=== PATIENT | male | born 1960 | race Caucasian/White ===

== ENCOUNTER 2023-03-20 04:25 | Inpatient (IN) | payer OTHER, SELFPAY ==
[2023-03-20] VITALS (28 sets, daily range): BP systolic 92–126; BP diastolic 63–91; PULSE 54–80; RESP 12–22; TEMP 35.9–36.6; O2SAT 95–100; BMI 28.6; BMI 28.3
--- NOTE | 2023-03-20 04:32 | EKG12_ITS ---
Test Reason : CP Blood Pressure : / mmHG Vent. Rate : 058 BPM Atrial Rate : 058 BPM P-R Int : 202 ms QRS Dur : 096 ms QT Int : 412 ms P-R-T Axes : 068 052 090 degrees QTc Int : [address] elevation consider inferior injury or acute infarct ACUTE WA / STEMI Consider right ventricular involvement in acute inferior infarct Abnormal ECG Confirmed by DEJAH ODONNELL, POLO ([id number]), greeting card editor ANIYAH JEAN ([id number]) on 03/20/2023 9:25:16 AM Referred By: Arian Jonas Confirmed By:POLO POND MD
--- NOTE | 2023-03-20 04:33 | RAD_ITS ---
EXAM: XR CHEST, 1 VIEW CLINICAL INDICATION: chest pain TECHNIQUE: Frontal view of the chest. COMPARISON: No relevant prior studies available. FINDINGS: LUNGS AND PLEURAL SPACES: Left apical opacity measuring 2.5 cm versus prominent first costochondral cartilage calcification. No pneumothorax. No effusion. HEART: Unremarkable. Cardiac silhouette not enlarged. MEDIASTINUM: Central airways and mediastinal contour are unremarkable. BONES/JOINTS: Unremarkable. SOFT TISSUES: Unremarkable. RAD/Chest 1 View (Portable) IMPRESSION: Left apical opacity measuring 2.5 cm versus prominent first costochondral cartilage calcification. Recommend lordotic view of the chest for further evaluation. Electronically Signed: Pipe Winters MD at 5:03 EDT ,
--- NOTE | 2023-03-20 04:34 | ED.VIS.CHEST ---
HPI History of Present Illness Chief Complaint: Chest Pain Informant: patient and EMS Onset/Context/Timing Associated Symptoms: Positive for Nausea, Diaphoresis and Lightheadedness; Negative for Vomiting or Dyspnea Narrative Narrative: Patient woke up about 3 AM, 1.5 hours prior to arrival, feeling poorly, diaphoretic, and feeling lightheaded like he might pass out. He was very nauseated but did not vomit. He denies any abdominal or chest discomfort including heaviness/pressure, denies any dyspnea, he his states that he look like he was briefly out. The patient did not have any sharp tearing sensations in his chest, arm or jaw discomfort, he has never felt like this before. He is heavy smoker, he takes medication for blood pressure but no other medications. He denies using drugs or cocaine. PFSH [facility] Medical History HTN (hypertension) Tobacco use Home Medications lisinopril 20 mg-hydrochlorothiazide 12.5 mg tablet 2 tab PO DAILY 03/20/23 [History Last Taken Unknown] Allergy/AdvReac Type Severity Reaction Status Date / Time tramadol AdvReac Chest Verified 03/20/23 04:29 tightness Family History (Updated 03/20/23 @ 04:[address] Caridad Freeman MD) Mother No problems noted. Father No problems noted. Surgical History (Updated 03/20/23 @ 04:[address] Caridad Freeman MD) H/O neck surgery Social History (Updated 03/20/23 @ 04:[address] Caridad Freeman MD) household members: spouse Smoking Status: Current every day smoker tobacco type: cigarettes Smoking packs per day: 0.5 Smoking cigarettes per day: 10.0 alcohol intake: never substance use type: does not use ROS ROS ED Constitutional Constitutional ED: Reports malaise and sweats; Denies chills or fever(s) Eyes Eyes: Denies change in vision or diplopia ENT ENT ED: Denies rhinorrhea or sore throat Cardiovascular Cardiovascular: Reports chest pain, fatigue and lightheadedness; Denies flutter in chest, leg edema, palpitations or radiating jaw, neck or arm pain Respiratory/Chest Respiratory/Chest: Denies cough or dyspnea Gastrointestinal Gastrointestinal: Reports nausea; Denies abdominal pain, diarrhea or vomiting Genitourinary Genitourinary ED: Denies dysuria or hematuria Musculoskeletal Musculoskeletal: Denies back pain or neck pain Integumentary Denies abscess or rash Neurologic Neurologic: Denies headache(s), paresthesias or weakness Psychiatric Psychiatric: Denies anxiety or suicidal thoughts EXAM Physical Exam Const Vital Signs: 03/20/23 04:26 03/20/23 04:32 03/20/23 04:32 Temperature 96.7 F L 96.6 F L Temperature Source Temporal Temporal Pulse Rate 59 L 80 Respiratory Rate 12 20 H Blood Pressure 122/73 H 120/71 Blood Pressure Mean 89 87 Pulse Ox 100 100 100 Oxygen Delivery Method Nasal Cannula Nasal Cannula Nasal Cannula Oxygen Flow Rate (L/min) 2 2 2 03/20/23 04:44 Temperature Temperature Source Pulse Rate Respiratory Rate Blood Pressure 124/90 H Blood Pressure Mean Pulse Ox Oxygen Delivery Method Oxygen Flow Rate (L/min) Positive well nourished and well developed General Appearance ED: well developed and NAD HEENT Reports moist mucous membranes normocephalic and atraumatic Eyes PERRL and EOMs intact bilaterally Neck full ROM and supple Resp normal respiratory effort and clear to auscultation bilaterally Cardio regular rate and regular rhythm Rate: other Other Details: Borderline bradycardia. Very faint heart sounds. GI non-tender and non-distended Auscultation: normoactive bowel sounds Palpation: soft Back/Spine no CVA tenderness General Back: other FROM Extremity normal to inspection General Extremety ED: Negative for edema, pulses abnormal or tenderness General Extremity: Negative for edema or pulses abnormal Neuro oriented x3, CN's II-XII intact bilaterally and no sensory deficits noted Sensorium / Orientation: awake and alert Motor Exam: strength 5/5 throughout Skin no rashes or lesions noted and no wounds Heart Score History: Moderately Suspicious ECG: Significant ST-Depression Age: >45 - <65 years Risk Factors: 1 or 2 Risk Factors Troponin: </= Normal Limit Score: 5 MDM MDM MDM Narrative Medical decision making narrative: Discussed with EMS. They wanted to call a STEMI alert because they were very concerned about his clinical appearance, and they took a picture of their twelve-lead which was segregated on their monitor, containing artifact, and scented to our charge nurse. I did not call a STEMI based on this because quite frankly it did not meet criteria based on what I was able to see, but once we receive the patient and got an EKG, we did alert cardiology and call a STEMI. Dr. Jonas agrees, and the team will come to take him to the Extr[facility] Press Operator. He was given heparin bolus, Brilinta 180, aspirin 324, IV fluids, oxygen, and Zofran. The patient appears very well and his vital signs are normal except for borderline bradycardia. History & Record Review Additional record(s) reviewed:: No prior records Lab Data Attestation: I reviewed the patient's lab results. Labs: Laboratory Results - last 24 hr 03/20/23 04:40 WBC 13.9 H RBC 4.80 Hgb 14.2 Hct 44.2 MCV 92.1 MCH 29.6 MCHC 32.1 RDW Std Deviation 45.0 H RDW Coeff of Trish 13.2 Plt Count 312 MPV 9.7 Immature Gran % (Auto) 0.400 Neut % (Auto) 64.4 Lymph % (Auto) 23.1 [place] % (Auto) 9.9 Eos % (Auto) 1.8 Baso % (Auto) 0.4 Absolute Neuts (auto) 9.0 H Absolute Lymphs (auto) 3.21 Nucleated RBC % 0 PT 13.2 INR 1.0 APTT 31.5 Sodium 139 Potassium 4.0 Chloride 105 Carbon Dioxide 27.0 Anion Gap 7 BUN 22 H Creatinine 1.07 Estim Creat Clear Calc 70.14 Est GFR (MDRD) Af Amer 90 Est GFR (MDRD) Non-Af 75 BUN/Creatinine Ratio 20.6 H Glucose 171 H Calcium 8.9 Troponin I High Sens 23 Radiography Chest X-Ray - ED: 1 View, Read by ED Physician, Normal, Mediastinum, No Acute Disease and - (Nodule versus mass versus rounded pneumonia left upper lobe) Diagnostic Testing: Clinical Impression(s) from Imaging Studies Chest X-Ray 03/20/23 04:33 IMPRESSION: Left apical opacity measuring 2.5 cm versus prominent first costochondral cartilage calcification. Recommend lordotic view of the chest for further evaluation. Electronically Signed: Pipe Winters MD at 5:03 EDT , Rhythm Strip Rhythm Strip: Sinus Rhythm Rate: 58 Ectopy: None EKG Initial EKG: Attestation: I personally reviewed and interpreted this EKG as follows: Interpretation: Sinus Rhythm, S-T Elevation (inf) and S-T Depression (laterally) Prior: No Prior Management Discussion w/another healthcare provider: Hospitalist and Laundry Housekeeper (cardiology) Critical Care Time Critical Care Time: Yes Critical care time (excluding procedures): 30-74 minutes (36 min), Including time spent:, Discussing w/Patient &/or Family/Video Intern, Discussing w/Consultants, Arranging Admission or Transfer and Performing Direct Patient Care at Bedside Discharge Plan Dx/Rx/DC Orders Clinical Impression: ST elevation myocardial infarction (STEMI) of inferior wall Disposition Disposition: Acute Care Hospital [facility]
[2023-03-20] MEDS: Aspirin 81 MG TAB.CHEW 324 MG PO (04:38)
--- NOTE | 2023-03-20 04:38 | PCM.HP.STD ---
HPI - General General Date of Admission: 03/20/23 Date of Service: 03/20/23 Chief Complaint: Diaphoresis, LH, nausea. HPI Narrative The patient is a 62 y/o M w/ PMHx: Hypertension, Tobacco use who presents to the [facility] ED on 03/20/23 with history of awakening at 3 am coated in sweat with lightheadedness, nausea without emesis with no associated chest pain or dyspnea but persisted prompting EMS call. notes she believes he may have passed out but patient denies although currently not the best historian. Currently patient denies any further lightheadedness or dizziness or near syncopal sensation and is not diaphoretic. In the emergency room patient however is extremely irritable and several times notes displeasure with IV access attempts. Upon ED arrival EKG obtained and STEMI inferior noted and STEMI alert called. Dr. Jonas contacted and agreed and requested administration heparin bolus, ASA FS and brillinta load be administered. Work-up in the ED included T 96.7, HR 59, BP 122/73, RR 12, 100% on 2L NC, pending CBC, BMP, coags, troponin, EKG upon requested evaluation of patient. [facility] Medical History HTN (hypertension) Tobacco use Home Medications lisinopril 20 mg-hydrochlorothiazide 12.5 mg tablet 2 tab PO DAILY 03/20/23 [History Last Taken Unknown] Allergy/AdvReac Type Severity Reaction Status Date / Time tramadol AdvReac Chest Verified 03/20/23 04:29 tightness Family History Mother No problems noted. Father No problems noted. other (Denies any marked maternal history including HD, DM, CA. Notes his father when he was younger but unclear reason why.) Surgical History (Updated 03/20/23 @ 04:[address] Caridad Freeman MD) H/O neck surgery Social History (Updated 03/20/23 @ 04:[address] Caridad Freeman MD) household members: spouse Smoking Status: Current every day smoker tobacco type: cigarettes Smoking packs per day: 0.5 Smoking cigarettes per day: 10.0 alcohol intake: never substance use type: does not use ROS ROS Narrative Admission Review of Systems: CONSTITUTIONAL: No weight loss, fever, chills, + weakness or fatigue. HEENT: Eyes: No visual loss, blurred vision, double vision or yellow sclerae. Ears, Nose, Throat: No hearing loss, sneezing, congestion, runny nose or sore throat. SKIN: No rash or itching, lesions, wounds. CARDIOVASCULAR: + LH, possible syncope versus near syncope, No chest pain, chest pressure or chest discomfort, palpitations, edema, orthopnea. RESPIRATORY: No shortness of breath, cough or sputum, wheezing, hemoptysis. GASTROINTESTINAL: + anorexia, nausea. No vomiting or diarrhea, abdominal pain, melena, BRBPR. GENITOURINARY: No dysuria, frequency, urgency or retention. NEUROLOGICAL: + LH, near syncope versus syncope. No headache, dizziness, syncope, paralysis, ataxia, numbness or tingling in the extremities, focal weakness, change in bowel or bladder control, seizure. MUSCULOSKELETAL: + muscle, back pain, joint pain or stiffness. HEMATOLOGIC: No anemia, bleeding or bruising. LYMPHATICS: No enlarged nodes. No history of splenectomy. PSYCHIATRIC: No history of depression or anxiety. ENDOCRINOLOGIC: No reports of sweating, cold or heat intolerance. No polyuria or polydipsia. ALLERGIES: No history of asthma, hives, eczema or rhinitis. Vital Signs Vital Signs Vital Signs: 03/20/23 04:26 Temperature 96.7 F L Temperature Source Temporal Pulse Rate 59 L Respiratory Rate 12 Blood Pressure 122/73 H Blood Pressure Mean 89 Pulse Ox 100 Oxygen Delivery Method Nasal Cannula Oxygen Flow Rate (L/min) 2 Weight Weight: 188 lb 7.924 oz Body Mass Index (BMI) 28.6 Physical Exam Narrative Physical Examination: General: Awake, alert, oriented x 3 and cooperative, seated upright in the ED bed in no apparent distress, irritable. Skin: Normal color, normal turgor, no icterus, no cyanosis. HEENT: AT/NC, EOMI, PERRLA, MMM, no carotid bruits or JVD noted. Lungs: Diminished, > bases, moderate effort, no rales, ronchi or wheezing. Heart: Bradycardic with regular rhythm; no gallop, rub audible. Abdomen: Soft, NTTP, ND, distant normal BS, no HSM. Extremities: No cyanosis, clubbing, or edema. Neurological: Patient awake, alert, oriented as noted, cognitive function intact; pupils equally reactive to light and accommodation, cranial nerves II-XII grossly normal, moving all 4 extremities, no focal deficits, strength moderately globally decreased secondary to acute presentation. Psychiatric: Affect appears irritable, no acute evidence of depressive or anxiety feelings. Assessment & Plan Assessment/Plan (1) ST elevation myocardial infarction (STEMI) of inferior wall: PLAN: Plan The patient is a 62 y/o M w/ PMHx: Hypertension, Tobacco use who presents to the [facility] ED on 03/20/23 with history of awakening at 3 am coated in sweat with lightheadedness, nausea without emesis with no associated chest pain or dyspnea but persisted prompting EMS call. notes she believes he may have passed out but patient denies although currently not the best historian. #1. Diaphoresis, nausea, lightheadedness with possible syncopal versus near syncopal event w/ Acute Inferior STEMI: EKG in ED w/ evidence inferior STEMI,pending CBC, BMP, troponin, CXR upon evaluation. Will transition to the catheterization lab once prepared and Dr. Jonas aware and en route. Following intervention, will plan to admit to the ICU, maintain on a monitored bed, continue serial cardiac enzymes and EKGs. Obtain magnesium level upon admission. Continue medical management w/ asa, add high dose statin w/ AM FLP. Given bradycardia currently noted will defer BB immediate addition. ECHO requested. ASA, morphine. #2. Hypertension: Patient outpatient is on Lisinopril-HCTZ 40-25 daily. Will hold temporarily given presentation with BP normal range, continue judicious IV fluids, avoiding automatic addition of beta-emily with #1 pending further heart rate and BP trending and will defer to cardiology discretion ultimately. #3. Tobacco Abuse: Encouraged cessation, inpatient consultation per RT, NR if desired. #4. DVT prophylaxis: We will initiate Lovenox in AM. #5. CODE status: Patient CAYDEN is his who is and living will is currently in. Discussed CODE status at length including difference between FULL code, DNR-CCA and DNR-CC status. Following discussions about the differences in these status, requested Full Code status. Charges/Coding Visit Charges Inpatient E&M: 15621 Init Hosp L3
[2023-03-20] MEDS: Ondansetron 4 MG/2 ML Vial IV (04:39)
[2023-03-20] MEDS: Heparin Injection (Vial) 5,000 UNIT/ML VIAL 4000 UNIT IV (04:40)
[2023-03-20] MEDS: TICAGRELOR 90 MG TABLET 180 MG PO (04:40)
[2023-03-20] MEDS: 0.9% Normal Saline 1,000 ML 999 ML IV (04:40)
[2023-03-20 04:51] LABS: Absolute Lymphocyte Count 3.21 X10^3/uL (0.83-4.51); Basophil# 0.05 X10^3/uL; Basophil% 0.4 % (0-1); Eosinophil# 0.25 X10^3/uL; Eosinophils% 1.8 % (0-5); Hematocrit 44.2 % (40-54); Hemoglobin 14.2 g/dL (13.0-16.5); Lymphocyte # 3.21 X10^3/ul (0.83-4.51); Lymphocyte % 23.1 % (19-41); Mean Corp Hgb Conc 32.1 g/dL (32-36); Mean Corpuscular Hgb 29.6 pg (27.0-32.0); Mean Corpuscular Volume 92.1 fL (80-94); Mean Platelet Vol. 9.7 fl (6.2-12.0); Monocyte# 1.37 X10^3/uL; Monocyte% 9.9 % (0-10); NRBC Flagged by Analyzer 0 % (0-5); Neutrophil # 8.97 X10^3/uL (2.7-7.7); Neutrophil % 64.4 % (47-70); Platelet Count 312 K/mm3 (150-450); RBC Distribution Width CV 13.2 % (11.6-14.6); White Blood Count 13.9 K/mm3 (4.4-11.0)
[2023-03-20 05:00] LABS: Partial Thromboplast Time 31.5 Seconds (24.1-36.2); Prothrombin Time (Protime)PT. 13.2 SECONDS (11.7-14.9)
[2023-03-20 05:12] LABS: Anion Gap 7 (5-15); BUN 22 mg/dL (7-18); BUN/Creat Ratio 20.6 RATIO (10-20); Calcium,Total 8.9 mg/dL (8.5-10.1); Chloride 105 mmol/L (98-107); Creatinine, Serum 1.07 mg/dL (0.70-1.30); EST Glomerular Filtration Rate 75 mL/min (>60); Est Glom Filt Rate - Afr Amer 90 mL/min (>60); Estimated Creatinine Clearance 70.14 ml/min; Glucose 171 mg/dL (74-106); Sodium Level 139 mmol/L (136-145); Troponin-I HS 23 pg/mL (3.0-78.0)
[2023-03-20 05:41] LABS: AST(SGOT) 21 U/L (15-37); Alanine Aminotransfer ALT/SGPT 23 U/L (16-61); Albumin, Serum 3.3 g/dL (3.2-5.0); Alkaline Phosphatase 120 U/L (45-117); Bilirubin, Direct 0.11 mg/dL (0.00-0.30); Globulin 4.5 g/dL (2.2-4.2); Magnesium 2.4 mg/dL (1.6-2.6); Protein, Total 7.8 g/dL (6.4-8.2)
--- NOTE | 2023-03-20 06:25 | ECHOCS_ITS ---
Reason For Study: STEMI Procedure This was a 2D Doppler, Color Flow transthoracic echocardiogram. The study was technically difficult. Contrast injection was performed. Exam performed portable in ICU/CCU. Left Ventricle Normal LV size. Left ventricular systolic function is normal. The estimated ejection fraction is 60 %. Mild segmental systolic dysfunction (see wall motion). Stage 1 diastolic dysfunction. Mid- Posterior: Hypokinetic. Mid-Inferior: Hypokinetic. Right Ventricle Normal RV size. Normal systolic function. Atria Normal left atrium. Normal right atrium. Mitral Valve Normal mitral valve. Tricuspid Valve Normal tricuspid valve. Aortic Valve The aortic valve is not well visualized. Pulmonic Valve Normal pulmonic valve. Great Vessels Normal aortic root. The pulmonary artery is normal size. Normal inferior vena cava. Pericardium/Pleural No pericardial effusion. Medication Diluted definity 1ml given slow IV push to enhance endocardial definition. MMode/2D Measurements & Calculations LVIDd: 4.6 cm IVSd: 0.95 cm LA dimension: 3.2 cm LVIDs: 3.2 cm LVPWd: 0.80 cm RVDd: 4.1 cm FS: 29.2 % LAV(MOD-sp4): 37.9 ml LVAd ap4: 25.0 cm2 SV(MOD-sp4): 40.2 ml LVLd ap4: 7.2 cm EDV(MOD-sp4): 70.9 ml EDV(sp4-el): 73.3 ml LVAs ap4: 14.9 cm2 LVLs ap4: 6.0 cm ESV(MOD-sp4): 30.7 ml ESV(sp4-el): 31.4 ml EF(MOD-sp4): 56.6 % EF(sp4-el): 57.2 % SV(sp4-el): 41.9 ml LA A4 area: 16.5 cm2 RA A4 area: 15.1 cm2 Time Measurements MV dec time: 0.21 sec Doppler Measurements & Calculations MV E max willis: 76.9 cm/sec Lat Peak E' Willis: 9.6 cm/sec Med Peak E' Willis: 8.2 cm/sec MV A max willis: 106.2 cm/sec E/E' lat: 8.0 E/E' med: 9.3 MV E/A: 0.72 MV V2 max: 111.2 cm/sec MV P1/2t max willis: 93.9 cm/sec Ao V2 max: 109.7 cm/sec MV max P.9 mmHg MV P1/2t: 82.2 msec Ao max P.8 mmHg MV V2 mean: 55.8 cm/sec Ao V2 mean: 73.5 cm/sec MV mean P.5 mmHg MV dec slope: 334.5 cm/sec2 Ao mean P.5 mmHg MV V2 VTI: 41.9 cm MVA(P1/2t): 2.7 cm2 Ao V2 VTI: 23.1 cm AV (velocity ratio): 0.84 LV V1 max: 97.0 cm/sec LV V1 max P.8 mmHg LV V1 mean P.1 mmHg LV V1 mean: 69.2 cm/sec LV V1 VTI: 19.5 cm ECHO/Echo Complete W/ Contrast Interpretation Summary Normal LV size. Left ventricular systolic function is normal. The estimated ejection fraction is 60 %. Stage 1 diastolic dysfunction. Contrast injection was performed. Ordering Physician: Caridad Freeman Referring Physician: Arian Jonas Performed By: Thompson Dominguez RCS
--- NOTE | 2023-03-20 06:35 | CON.PCM.CA_ITS ---
Assessment & Plan Assessment/Plan (1) ST elevation myocardial infarction (STEMI) of inferior wall: PLAN: Treated with thrombectomy and drug-eluting stent placement of the RCA. We will keep the patient on aspirin, Brilinta and statin. Patient's blood pressure is low and we will start him on a beta-emily when his blood pressure can t olerate. 2D echo to evaluate LV function. HPI Consult Data Date of Consult: 03/20/23 HPI Narrative Reason for Consultation: STEMI HPI Narrative: REESE WHITLEY, is a 62 M who woke up around 3 AM this morning with profuse sweating, lightheadedness. His mentioned that he had a syncopal episode as well. He was brought to the emergency room and was found to have ST elevation in the inferior leads on the EKG. Patient denied any chest pain. However because of the inferior ST elevation on the EKG patient was brought emergently to the [facility] and underwent coronary angiography which revealed 100% occlusion of the distal RCA that was treated with thrombectomy and drug-eluting stent placement. He also had an 80% lesion in the mid RCA that was treated with drug- eluting stent placement. He is being admitted to the CCU for further management of his ST elevation NH Review of systems: All systems reviewed. All else is negative except as in HPI PFSH Medical History HTN (hypertension) Tobacco use Home Medications lisinopril 20 mg-hydrochlorothiazide 12.5 mg tablet 2 tab PO DAILY 03/20/23 [History Last Taken Unknown] Allergy/AdvReac Type Severity Reaction Status Date / Time tramadol AdvReac Chest Verified 03/20/23 04:29 tightness Family History (Updated 03/20/23 @ 04:[address] Caridad Freeman MD) Mother No problems noted. Father No problems noted. Family History other Surgical History (Updated 03/20/23 @ 04:[address] Caridad Freeman MD) H/O neck surgery Social History (Updated 03/20/23 @ 04:[address] Caridad Freeman MD) household members: spouse Smoking Status: Current every day smoker tobacco type: cigarettes Smoking packs per day: 0.5 Smoking cigarettes per day: 10.0 alcohol intake: never substance use type: does not use Physical Exam Const alert and oriented x3 HEENT normocephalic Eyes no scleral icterus Resp normal respiratory effort Cardio regular rate Psych mental status grossly normal Risk Stratification Risk Stratification Applicable: No Charges/Coding Visit Charges Inpatient E&M: 27982 Init Hosp L2 Objective Data Vital Signs: Vital Signs Temp Pulse Resp BP Pulse Ox O2 Del Method O2 Flow Rate 96.6 F L 80 20 H 124/90 H 100 Nasal Cannula 2 03/20/23 04:32 03/20/23 04:32 03/20/23 04:03/20/23 04:44 03/20/23 04:03/20/23 04:03/20/23 04:32 Oxygen Flow Rate (L/min) 2 Oxygen Delivery Method Nasal Cannula Weight: 188 lb 7.924 oz Body Mass Index (BMI) 28.6 Lab / Micro Data 03/20/23 04:40 03/20/23 04:40 Labs: Laboratory Results - last 24 hr 03/20/23 04:40: WBC 13.9 H, RBC 4.80, Hgb 14.2, Hct 44.2, MCV 92.1, MCH 29.6, MCHC 32.1, RDW Std Deviation 45.0 H, RDW Coeff of Trish 13.2, Plt Count 312, MPV 9.7, Immature Gran % (Auto) 0.400, Neut % (Auto) 64.4, Lymph % (Auto) 23.1, [place] % (Auto) 9.9, Eos % (Auto) 1.8, Baso % (Auto) 0.4, Absolute Neuts (auto) 9.0 H, Absolute Lymphs (auto) 3.21, Nucleated RBC % 0, PT 13.2, INR 1.0, APTT 31.5, Sodium 139, Potassium 4.0, Chloride 105, Carbon Dioxide 27.0, Anion Gap 7, BUN 22 H, Creatinine 1.07, Estim Creat Clear Calc 70.14, Est GFR (MDRD) Af Amer 90, Est GFR (MDRD) Non-Af 75, BUN/Creatinine Ratio 20.6 H, Glucose 171 H, Calcium 8.9, Troponin I High Sens 03/20/23 04:55: Magnesium 2.4, Total Bilirubin 0.30, Direct Bilirubin 0.11, AST 21, ALT 23, Alkaline Phosphatase 120 H, Total Protein 7.8, Albumin 3.3, Globulin 4.5 H Rhythm Strip Rhythm Strip: Sinus Rhythm Rate: 58 Ectopy: None Cardiology Labs/Tests 03/20/23 04:40: WBC 13.9 H, RBC 4.80, Hgb 14.2, Hct 44.2, MCV 92.1, MCH 29.6, MCHC 32.1, Plt Count 312, MPV 9.7, Immature Gran % (Auto) 0.400, Neut % (Auto) 64.4, Lymph % (Auto) 23.1, [place] % (Auto) 9.9, Eos % (Auto) 1.8, Baso % (Auto) 0.4, Absolute Neuts (auto) 9.0 H, Nucleated RBC % 0, PT 13.2, INR 1.0, APTT 31.5, Sodium 139, Potassium 4.0, Chloride 105, Carbon Dioxide 27.0, Anion Gap 7, BUN 22 H, Creatinine 1.07, Est GFR (MDRD) Af Amer 90, Est GFR (MDRD) Non-Af 75, BUN/Creatinine Ratio 20.6 H, Glucose 171 H, Calcium 8.9 03/20/23 04:55: Magnesium 2.4, Total Bilirubin 0.30, Direct Bilirubin 0.11 Rhythm: EKG: ECHO: Stress Test: Cardiac Cath: PCI: CT Surgery: Holter monitor: EPS: PPM: CXR: Chest CT Scan: Radiography Diagnostic Testing: Radiology Impression Chest X-Ray 03/20/23 04:33 IMPRESSION: Left apical opacity measuring 2.5 cm versus prominent first costochondral cartilage calcification. Recommend lordotic view of the chest for further evaluation. Electronically Signed: Pipe Winters MD at 5:03 EDT ,
[2023-03-20] MEDS: 0.9% Normal Saline 1,000 ML 100 ML IV (06:50)
--- NOTE | 2023-03-20 07:00 | EKG12_ITS ---
Test Reason : PCI Blood Pressure : / mmHG Vent. Rate : 061 BPM Atrial Rate : 061 BPM P-R Int : 166 ms QRS Dur : 094 ms QT Int : 406 ms P-R-T Axes : 081 -29 039 degrees QTc Int : 408 ms Normal sinus rhythm Inferior infarct , age undetermined Abnormal ECG When compared with ECG of 20-MAR-2023 06:43, MANUAL COMPARISON REQUIRED, DATA IS UNCONFIRMED Confirmed by DEJAH ODONNELL, POLO ([id number]), features editor ANIYAH JEAN ([id number]) on 03/24/2023 2:11:05 PM Referred By: Arian Jonas Confirmed By:POLO POND MD
[2023-03-20 07:18] LABS: Troponin-I HS 12098 pg/mL (3.0-78.0)
--- NOTE | 2023-03-20 07:35 | PN.HOSP_ITS ---
Reason for Visit Reason for Visit: Diagnoses ST elevation (STEMI) myocardial infarction involving other coronary artery of i nferior wall (03/20/23) Objective Data Objective Data Follow-up for left colostomy Vital Signs: Vital Signs Temp Pulse Resp BP Pulse Ox O2 Del Method O2 Flow Rate 97.2 F L 71 12 99/71 98 Room Air 2 03/20/23 06:45 03/20/23 07:15 03/20/23 07:15 03/20/23 07:15 03/20/23 07:15 03/20/23 07:15 03/20/23 04:32 Oxygen Flow Rate (L/min) 2 Oxygen Delivery Method Room Air Weight: 186 lb 4.65 oz Body Mass Index (BMI) 28.3 Intake & Output: Intake and Output for Last 24 Hours 03/18/23 03/19/23 03/20/23 23:59 23:59 23:59 Intake Total 1000 / 1000 Balance 1000 / 1000 Lab / Micro Data 03/20/23 04:40 03/20/23 04:40 Labs: Laboratory Results - last 24 hr 03/20/23 04:40: WBC 13.9 H, RBC 4.80, Hgb 14.2, Hct 44.2, MCV 92.1, MCH 29.6, MCHC 32.1, RDW Std Deviation 45.0 H, RDW Coeff of Trish 13.2, Plt Count 312, MPV 9.7, Immature Gran % (Auto) 0.400, Neut % (Auto) 64.4, Lymph % (Auto) 23.1, [place] % (Auto) 9.9, Eos % (Auto) 1.8, Baso % (Auto) 0.4, Absolute Neuts (auto) 9.0 H, Absolute Lymphs (auto) 3.21, Nucleated RBC % 0, PT 13.2, INR 1.0, APTT 31.5, Sodium 139, Potassium 4.0, Chloride 105, Carbon Dioxide 27.0, Anion Gap 7, BUN 22 H, Creatinine 1.07, Estim Creat Clear Calc 70.14, Est GFR (MDRD) Af Amer 90, Est GFR (MDRD) Non-Af 75, BUN/Creatinine Ratio 20.6 H, Glucose 171 H, Calcium 8.9, Troponin I High Sens 03/20/23 04:55: Magnesium 2.4, Total Bilirubin 0.30, Direct Bilirubin 0.11, AST 21, ALT 23, Alkaline Phosphatase 120 H, Total Protein 7.8, Albumin 3.3, Globulin 4.5 H 03/20/23 06:40: Troponin I High Sens 52501 H* Radiography Diagnostic Testing: Radiology Impression Chest X-Ray 03/20/23 04:33 IMPRESSION: Left apical opacity measuring 2.5 cm versus prominent first costochondral cartilage calcification. Recommend lordotic view of the chest for further evaluation. Electronically Signed: Pipe Winters MD at 5:03 EDT , Rhythm Strip Rhythm Strip: Sinus Rhythm Rate: 58 Ectopy: None Physical Exam Narrative Seen and examined. Patient does not have symptoms of chest pain pressure or tightness. No shortness of breath. Dizziness lightheadedness and diaphoresis has resolved. Normal sinus rhythm on fur buyer. Physical exam General: Alert, Oriented x3, Cooperative HEENT: Atraumatic, PERRLA, EOMI, Normocephalic Oral: Oral mucosa moist. No Gingival or Mucosal Lesions/ Ulcerations Neck: Supple, No JVD, Negative Carotid Bruits Lungs: Air entry diminished in bilateral lung bases. No crepitation/rhonchi Cardiovascular: Regular rate, Regular Rhythm, Normal S1, Normal S2, No murmurs Abdomen: Bowel Sounds Present, Soft, Non Tender, Non-Distended : No renal angle tenderness. No suprapubic tenderness. Extremities: No edema, Capillary Refill Less than 3 Seconds Skin: No rashes, No breakdown Musculoskeletal: No Tenderness to Palpation of Joints or Extremities Neurological: Cranial nerves II-XII grossly intact, DTR 2+/4 and Symmetrical, Neuro grossly intact Psych/Mental Status: Normal Affect, Appropriate. Assessment & Plan Assessment/Plan (1) ST elevation myocardial infarction (STEMI) of inferior wall: PLAN: Plan The patient is a 62 y/o M was admitted in ICU through ED on 03/20/23 with history of awakening at 3 am coated in sweat with lightheadedness, nausea without emesis with no associated chest pain or dyspnea but persisted prompting EMS call. notes she believes he may have passed out but patient denies although currently not the best historian. #1. Diaphoresis, nausea, lightheadedness with possible syncopal versus near syncopal event w/ Acute Inferior STEMI: EKG in ED reviewed and shows evidence of inferior wall STEMI. Serum magnesium normal. 03/20: Patient was found to have 100% occlusion of distal RCA was treated with thrombectomy and drug-eluting stent. Patient on aspirin, Brilinta and statin. Currently BP is low we will start beta-emily once BP and heart rate can to lerate. 2D echo ordered. Troponin very high. Liver chemistry normal. Fasting lipid profile pending. #2. Hypertension: BP on the lower side 78/65. Hold lisinopril HCTZ 40-25 mg daily. #3. Tobacco Abuse: Encouraged cessation #4. DVT prophylaxis: initiate Lovenox in AM. #5. CODE status: Patient CAYDEN is his who is and living will is currently in. Discussed CODE status at length including difference between FULL code, DNR- CCA and DNR-CC status. Following discussions about the differences in these status, requested Full Code status. Laboratory Results 03/20/23 04:40: WBC 13.9 H, RBC 4.80, Hgb 14.2, Hct 44.2, MCV 92.1, MCH 29.6, MCHC 32.1, RDW Std Deviation 45.0 H, RDW Coeff of Trish 13.2, Plt Count 312, MPV 9.7, Immature Gran % (Auto) 0.400, Neut % (Auto) 64.4, Lymph % (Auto) 23.1, [place] % (Auto) 9.9, Eos % (Auto) 1.8, Baso % (Auto) 0.4, Absolute Neuts (auto) 9.0 H, Absolute Lymphs (auto) 3.21, Nucleated RBC % 0, PT 13.2, INR 1.0, APTT 31.5, Sodium 139, Potassium 4.0, Chloride 105, Carbon Dioxide 27.0, Anion Gap 7, BUN 22 H, Creatinine 1.07, Estim Creat Clear Calc 70.14, Est GFR (MDRD) Af Amer 90, Est GFR (MDRD) Non-Af 75, BUN/Creatinine Ratio 20.6 H, Glucose 171 H, Calcium 8.9, Troponin I High Sens 23 03/20/23 04:55: Magnesium 2.4, Total Bilirubin 0.30, Direct Bilirubin 0.11, AST 21, ALT 23, Alkaline Phosphatase 120 H, Total Protein 7.8, Albumin 3.3, Globulin 4.5 H 03/20/23 06:40: Troponin I High Sens 33837 H* Charges/Coding Visit Charges Inpatient E&M: 97763 Subs Hosp L3
[2023-03-20 09:31] LABS: Cholesterol 165 mg/dL (200); High Density Lipoprotein 35 mg/dL; Triglycerides 81 mg/dL; Very Low Density Lipoprotein 16 mg/dL (5-40)
--- NOTE | 2023-03-20 10:57 | CRPHASE1_ITS ---
Patient Communication Patient Information Former Patient:: Phase I PHII Cardiac Rehab Discussed with Patient:: Yes Guide to Cardiac Rehab Given to Patient:: Yes Cardiac Rehab Facility Choice List Given to Patient:: Yes Communication to Cardiac Rehab Choice Program [facility] CR PHII:: Communication Given to CR Tarper:: Arian Jonas Sessions:: 36 sessions - 3 days/wk, 12 weeks Cardiac Rehabilitation Info Program Information Cardiac Rehabilitation Program Information: Cardiac Rehab The cardiac rehab team at [facility] consists of highly skilled exercise physiologists, nurses, respiratory therapists and physicians working together with you. Our purpose is to help you have a full recovery and achieve the goals you set for yourself. Over the years many of our patients have returned to activities they assumed they would never do again! We can help restore your confidence and motivation to make lifestyle changes that can have a significant impact on your health and quality of life! We can help answer questions and concerns you may have about exercise, lifestyle, medications, diet, stress and anxiety which are common following a hospitalization. WE monitor ECG and vital signs during exercise and discuss your progress with you and report to your physician(s). Cardiac Rehab is proven to help reduce readmissions, improve functional capacity and lower recurrence of problems with your heart. Our Cardiac Rehab program is Certified by the [place] [employer] Pulmonary [employer] (AACVPR) and Accredited by the [place] [employer] through our [facility]. You can contact us at . We invite you to call us with your questions or to get started in our program. If you have other questions or concerns be sure to ask your physician/provider during your follow-up visit. WE look forward to seeing you!
--- NOTE | 2023-03-20 11:01 | CRPH1.INSTRU ---
General Education Discussed with Patient CAD and cardiac anatomy and function:: Patient communicates acknowledgment Explanation of diagnoses and procedures:: Patient communicates acknowledgment Sign/Symptoms of [place]:: Patient communicates acknowledgment Antiplatelet therapy: Patient communicates acknowledgment Proper use of NTG-SL: Patient communicates acknowledgment Emergency procedures and activation of EMS: Patient communicates acknowledgment Compliance of all prescribed medications: Patient communicates acknowledgment Smoking Response Code Nicotine/Smoking Response Code:: Patient communicates acknowledgment Dyslipidemia Risk Factors Patient Dyslipidemia Risk Factors Are:: Total Cholesterol, Triglycerides, HDL and LDL Recommendations Recommendations Include:: Lipid profile not available Response Code Dyslipidemia Response Code:: Patient communicates acknowledgment Overweight/Obesity Response Code Overweight/Obesity:: Patient communicates acknowledgment Hypertension Risk Factors Patient Hypertension Risk Factors Are:: No documented hx of HTN Recommendations Recommendations Include:: Maintain BP <130/85, BP <130/80 if diabetic, DASH dietary guidelines, Decrease/maintain normal body weight and Moderation of ETOH Response Code Hypertension:: Patient communicates acknowledgment Heart Disease Recommendations Recommendations Include:: Educated family members of their risk Response Code Heart Disease Response Code:: Patient communicates acknowledgment Diabetes Recommendations Recommendations Include:: Maintain fasting blood sugars 70-110 md/dL, Maintain HgbA1c of 6% or less, Monitor blood sugar as prescribed, Diabetic dietary guidelines and Decrease/maintain body weight Response Code Diabetes:: Patient communicates acknowledgment Metabolic Syndrome Risk Factors Patient Metabolic Syndrome Risk Factors Are [3 of 5]:: Fasting blood sugar > 100 mg/dL, Waist circumference > 35 [female] or 40 [male], High triglyceride >150, Hypertension and Low HDL <40 [male] or < 50 [female] Recommendations Recommendations Include:: Encouraged follow-up with Primary Care Physician Response Code Metabolic Syndrome Response Code:: Patient communicates acknowledgment Sedentary Recommendations Recommendations Include:: Aerobic exercise 5-7 times/week for 20-30 minutes continuously, Benefits of regular exercise, Discussed home walking program and Monitored Outpatient Cardiac Rehab Response Code Sedentary Response Code:: Patient communicates acknowledgment Stress Recommendations Recommendations Include:: Identification of stressors, and assessment of coping skills and Stress management techniques Response Code Stress Response Code:: Patient communicates acknowledgment
--- NOTE | 2023-03-20 11:41 | CL.I_ITS ---
Patient Name: REESE WHITLEY Study Date: 03/20/2023 Performing: Magali Jonas MD Ht: 68 inches 172.72 cm : 1960 Wt: 188.7 lbs 85.5 kg Age: 62 Gender: male BSA: 1.99 PROCEDURE(S) PERFORMED DC02-(96633)LHC/COR IC16-([id number])AMI, SACHI OR PTCA, ARTERY/GRAFT, SINGLE VESSEL CLINICAL PROFILE AND CO-MORBIDITIES Indications: ACS <= 24 hrs Heart Failure: None Stress/Imaging Stress/Image Study Performed: No CAD Presentations: STEMI. Symptom onset Date/Time: 03/20/23 03:00:00 Time Estimated CONCLUSIONS CAD as described. No significant . Successful PCI of dRCA and mRCA with SACHI RECOMMENDATIONS DESCRIPTION OF PROCEDURE The patient arrived to the procedure lab. The risks and benefits of the procedure as well as a full description of our services here and lack of surgical backup were fully explained to the patient and/or their significant other prior to the catheterization. The Timeout was completed, verifying the correct patient and procedure. The patient's procedural site was prepped and draped in the usual fashion. Local anesthetic was given subcutaneously to right radial region with Lidocaine 2%. Using a modified Seldinger technique, arterial access was obtained via the right radial artery, a 6Fr sheath was inserted.. Left Coronary Artery selective angiography was performed in multiple views using a 5 Fr. JL3.5 catheter. LV to AO pullback pressures were then recorded JR 4 Guide catheter was inserted and engaged into the RCA. BMW Guide wire was advanced to the RCA. Priority One inserted Pass # 1 Priority One Removed Angiogram performed post priority 1 aspiration Resolute [place] 3.0x15 Drug Eluting stent was inserted. Angiogram performed post stent deployment. Resolute [place] 3.0x22 Drug Eluting stent was inserted. Angiogram performed post stent deployment. The arterial sheath was pulled and a TR Band was applied for hemostasis w/ 10ml air] CORONARY ANGIOGRAPHY DOMINANCE: Right Dominant LEFT HEART ASSESSMENT LEFT MAIN: Mild luminal irregularities LEFT ANTERIOR DESCENDING ARTERY: Mild luminal irregularities MID LAD: myocardial bridging noted RIGHT CORONARY ARTERY: MID RCA: 80 % Stenosis DISTAL RCA: 100 % Stenosis VALVE FINDINGS: No Aortic Valve Stenosis INTERVENTION INFORMATION LESION SITE: RCA (Distal) Lesion Complexity: High/C, chronic total occlusion: No, lesion at bifurcation: No, thrombus present: Yes, lesion length: 14 mm, culprit lesion: Yes, Previously treated lesion: No Pre Stenosis: 100 % Pre intervention TOD flow: 0 PROCEDURE: Thrombectomy, Drug Eluting Stent Post Stenosis: 0 % Post intervention TOD flow: 3 Lesion Devices: Contreras .014 190cm BMW [place] Straight Cordis 6 Fr JR4 100cm Guide Catheter Tero Priority One Aspiration Catheter Medtronic Resolute Nick RX SACHI 3.0x15 LESION SITE: RCA (Mid) Lesion Complexity: High/C, chronic total occlusion: No, lesion at bifurcation: No, thrombus present: No, lesion length: 14 mm, culprit lesion: Yes, Previously treated lesion: No Pre Stenosis: 80 % Pre intervention TOD flow: 3 PROCEDURE: Drug Eluting Stent Post Stenosis: 0 % Post intervention TOD flow: 3 Lesion Devices: Contreras .014 190cm BMW [place] Straight Cordis 6 Fr JR4 100cm Guide Catheter Medtronic Resolute [place] RX SACHI 3.0x22 COMPLICATIONS No Complications PROCEDURE MEDICATIONS Versed 2 mg IV Oxygen: 2 L/min via nasal cannula Atropine 1mg/10ml 1 amp @ 03/20/2023 05:50:02 Heparin given IA 03/20/2023 05:42:10 Nitro 100 mcg IC 03/20/2023 05:58:39 Verapamil 2.5mg, Ntg 100mcgs, 3000 units of Heparin given IA 03/20/2023 05:42:10 IV Bolus: .9 NaCl 1300ml total 03/20/2023 06:03:38 SUMMARY OF HEMODYNAMIC DATA Time AIR REST ECG 05:23:37 AO 111/68 (90) SA 05:44:16 AO 68/37 (55) 05:49:57 AO 88/54 (71) 06:05:18 LV 67/13, 16 06:09:16 LV 66/13, 16 06:09:24 LVp 68/13, 17 06:09:30 AOp 73/16 (43) 06:09:49 AOp 73/16 (43) 06:09:49 LVp 69/19, 21 06:09:56 LVp 69/19, 21 06:09:56 AOp 65/45 (56) 06:10:04 AOp 65/45 (56) 06:10:04 Signed By Magali Jonas MD On 03/20/2023 11:40:06 Magali Jonas MD
--- NOTE | 2023-03-20 14:00 | CASEMGMT ---
GINA LE Assessment: Face to Face with pt for initial transition planning/care coordination assessment. RN REY introduced self and role at [facility], pt voices understanding and consents to assessment. Pt is A/O x4 and answers all questions appropriately at this time. Pt sitting up in chair in no distress with at bedside. Care providers, pharmacy, and demographics verified/updated. Admitting Dx: STEMI PCP:Praful Specialists:Pt denies Preferred Pharmacy:[facility] Insurance: [employer]- TC to Registration and assisted to email copy of card to registration Prescription Benefit: yes LNOK: Mariana Almazan, Living Arrangements: Pt lives with in a split level home with 1 step to enter. Pt reports he is I in ADL's and denies concerns at home. Transportation: Pt drives self and denies concerns with transportation. DME/HHC/SNF: Pt denies having any DME in the home, previous HHC or SNF stays. Pt states no concerns with going home at time of dc. States he has been spoken to about cardiac rehab briefly. Provided pt with a Brilinta savings card with explanation. Pt and deny questions regarding this. Pt states no further concerns/needs. CM to follow. Advised pt to ask CM if any further question/concerns/needs arise, voices understanding. Pt Goal: Home Plan: Home, Brilinta savings card provided.
[2023-03-20] MEDS: Atorvastatin Calcium 80 MG Tablet PO (21:12)
[2023-03-20] MEDS: TICAGRELOR 90 MG TABLET PO (21:12)
[2023-03-21] VITALS (10 sets, daily range): BP systolic 107–143; BP diastolic 68–92; PULSE 55–68; RESP 13–21; TEMP 36.2–36.3; O2SAT 96–99; BMI 28.1
[2023-03-21 03:18] LABS: Absolute Lymphocyte Count 2.85 X10^3/uL (0.83-4.51); Absolute Neutrophil Count 6.8 X10^3/uL (2.0-7.7); Basophil# 0.05 X10^3/uL; Basophil% 0.4 % (0-1); Eosinophils% 1.8 % (0-5); Hematocrit 37.4 % (40-54); Hemoglobin 12.7 g/dL (13.0-16.5); Lymphocyte # 2.85 X10^3/ul (0.83-4.51); Lymphocyte % 25.4 % (19-41); Mean Corpuscular Hgb 30.7 pg (27.0-32.0); Mean Corpuscular Volume 90.3 fL (80-94); Mean Platelet Vol. 9.7 fl (6.2-12.0); Monocyte# 1.28 X10^3/uL; Monocyte% 11.4 % (0-10); NRBC Flagged by Analyzer 0 % (0-5); Neutrophil # 6.81 X10^3/uL (2.7-7.7); Neutrophil % 60.6 % (47-70); Platelet Count 252 K/mm3 (150-450); RBC Distribution Width CV 13.3 % (11.6-14.6); RBC Distribution Width SD 44.3 fl (35.1-43.9); Red Blood Count 4.14 M/mm3 (4.6-6.2); White Blood Count 11.2 K/mm3 (4.4-11.0)
[2023-03-21 03:51] LABS: ALB/GLOB Ratio 0.7 RATIO (0.9-2.4); AST(SGOT) 115 U/L (15-37); Alanine Aminotransfer ALT/SGPT 33 U/L (16-61); Albumin, Serum 2.8 g/dL (3.2-5.0); Alkaline Phosphatase 100 U/L (45-117); Anion Gap 4 (5-15); BUN 16 mg/dL (7-18); BUN/Creat Ratio 20.7 RATIO (10-20); Calcium,Total 8.5 mg/dL (8.5-10.1); Chloride 112 mmol/L (98-107); Creatinine, Serum 0.77 mg/dL (0.70-1.30); EST Glomerular Filtration Rate 108 mL/min (>60); Est Glom Filt Rate - Afr Amer 131 mL/min (>60); Estimated Creatinine Clearance 97.47 ml/min; Globulin 3.8 g/dL (2.2-4.2); Glucose 114 mg/dL (74-106); Potassium 4.1 mmol/L (3.5-5.1); Protein, Total 6.6 g/dL (6.4-8.2); Sodium Level 140 mmol/L (136-145)
--- NOTE | 2023-03-21 05:21 | RAD_ITS ---
STUDY: X-RAY CHEST REASON FOR EXAM: Male, 62 years old. ? L apical opacity versus prominent cartilage. -- PLEASE OBTAIN LORDOTIC VIEW. TECHNIQUE: Single AP portable view of the chest. COMPARISON: 03/20/2023 FINDINGS: Left apical opacity corresponds to costochondral cartilage of the first rib and also seen on the opposite side with osteophyte formation. The lungs are clear and expanded. There is no demonstrated pleural abnormality. Normal size heart. Normal mediastinum and ben. Normal visualized pulmonary arteries. Normal visualized aortic arch and descending thoracic aorta. Normal visualized thoracic spine. Normal visualized ribs, clavicles, and shoulders. There is no demonstrated abnormality of the visualized soft tissue structures of the upper abdomen. RAD/Chest 1 View (Portable) IMPRESSION: No evidence of acute cardiopulmonary process. First rib costochondral cartilage degenerative change and osseous densities bilaterally. Electronically Signed: Sree Terrazas DO at 15:41 EDT ,
--- NOTE | 2023-03-21 08:01 | DCINST_ITS ---
Discharge Instructions Diet Discharge Diet: Low fat / Low cholesterol, 1800 Calorie Control Diet and 2000 mg Sodium Diet Activity Discharge Activity: Return to Normal Activity Weight Bearing Status: Weight bearing as tolerated Lifting Restrictions: No heavy lifting, pushing, carrying heavy load on right hand for 1 week Dressing / Incision Call your doctor if you observe: Fever of 101 or Higher, Coldness, Increased Pain, Numbness or Tingling, Change in Color, Inability to urinate, Inability to have a bowel movement, Shortness of breath, Dizziness, Fainting spells, Swelling in the ankles, Chest pain, Prolonged hiccupping, Increased palpitations (irregular heartbeat) and Calf discomfort Follow Up Care When: IN 2 WEEKS Test Results: Test results from this visit will be discussed in further detail at your follow- up appointment, if applicable. Discharge Plan Admission Admit Date/Time: 03/20/23 04:50 Primary Reason for Your Visit: Inferior wall STEMI Attending Provider: Mil English Primary Care Provider: Ginger Basilio Consulting Providers: Arian Jonas; Caridad Freeman Discharge Orders/Prescriptions Prescriptions: New atorvastatin 80 mg Tablet 80 mg PO QHS 30 Days Qty: 30 2RF aspirin 81 mg Tablet,Delayed Release (Dr/Ec) 81 mg PO BREAKFAST 30 Days Qty: 30 3RF Brilinta 90 mg Tablet 90 mg PO BID 30 Days Qty: 60 3RF lisinopril 10 mg tablet 10 mg PO DAILY Qty: 30 2RF Rx Instructions: Hold for SBP less than 130 mmHg carvedilol 3.125 mg tablet 3.125 mg PO BID 30 Days Qty: 60 2RF Rx Instructions: must administer with a meal/food Discontinued lisinopril-hydrochlorothiazide 20-12.5 mg tablet 2 tab PO DAILY Patient Comments: TAKE 2 TABLETS BY MOUTH ONCE DAILY Referrals / Follow Up: Huy Ndiaye MD [Med Staff - Active Staff] - Within 2 Weeks (for Inferior wall STEMI) Ginger Basilio MD [Primary Care Provider] - NOT,DEFINED [Non-Staff] - Disposition Disposition (needs filled in before D/C Order can be placed): Home, Self Care
--- NOTE | 2023-03-21 08:15 | DS.PCM_ITS ---
Providers Date of Admission: 03/20/23 Date of Discharge: 03/21/23 Primary Care Physician: Dr. Ginger Basilio MD Consultations 03/20/23 06:25 Consult: Cardiology Routine Consulting Provider: Arian Jonas Reason for Consult: STEMI EMERGENT Consult: Yes MD Notified: Yes Date Notified: 03/20/23 Time Notified: 04:52 Method of Notification: Verbal Reason For Visit: STEMI Diagnosis Discharge Diagnosis (1) ST elevation myocardial infarction (STEMI) of inferior wall: Status: Acute Code(s): I21.19 - ST elevation (STEMI) myocardial infarction involving other coronary artery of inferior wall Plan The patient is a 62 y/o M was admitted in ICU through ED on 03/20/23 with history of awakening at 3 am soaked in sweat with lightheadedness, nausea without emesis with no associated chest pain or dyspnea. Patient also said that he might have passed out but patient denies it. Patient was directly taken to [facility] as per STEMI protocol #1. Diaphoresis, nausea, lightheadedness with possible syncopal versus near syncopal event w/ Acute Inferior STEMI: EKG in ED reviewed and shows evidence of inferior wall STEMI. Serum magnesium normal. Patient was managed as per STEMI protocol. 03/20: Patient was found to have 100% occlusion of distal RCA was treated with thrombectomy and drug-eluting stent. Patient on aspirin, Brilinta and statin. Troponin very high. Liver chemistry normal. 03/21: Patient passed yesterday after few hours of cardiac cath that he wants to go home but was told he just had the procedure. Patient repeated today that when he is going home and asked further discharged. 2D echo shows EF 60% with hypokinetic inferior and posterior wall. Had 2 episodes of 4-5 beats of NSVT on the monitor but patient did not had symptoms of palpitation, dizziness or lightheadedness. Fasting lipid profile LDL 114, HDL 35, triglyceride 81, TC 165. Patient is discharged on aspirin, Brilinta, low-dose carvedilol 3.125 mg twice daily, lisinopril 10 mg daily and atorvastatin 80 mg daily. His home medication lisinopril HCTZ discontinued. Advised to follow-up in cardiac rehab as scheduled and Dr. Ndiaye in 2 weeks. 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 Jonas. Patient advised not to lift, pushing, pulling or carrying heavy weight for 1 week from right hand right wrist artery cardiac cath access site no hematoma no bruise #2. Hypertension: BP on the lower side 78/65. Hold lisinopril HCTZ 40-25 mg daily. #3. Tobacco Abuse: Patient advised quitting tobacco. #4. DVT prophylaxis: #5. CODE status: Patient CAYDEN is his who is and living will is currently in. Discussed CODE status at length including difference between FULL code, DNR- CCA and DNR-CC status. Following discussions about the differences in these status, requested Full Code status. Discharge medication reconciliation done. Discharge follow-up instructions completed. Discharge process discussed with the patient and all questions were answered to patient's satisfaction. Total time spent, exact 35 minutes on discharge meds reconciliation, examination, coordination of care with nurses and ancillary staff, review of imaging and blood test and discussion with the patient on follow-up instructions. Laboratory Results 03/20/23 08:30: Troponin I High Sens 73325 H*, Triglycerides 81, Cholesterol 165, LDL Cholesterol 114, VLDL Cholesterol 16, HDL Cholesterol 35 L 03/20/23 12:30: Troponin I High Sens 40601 H* 03/21/23 03:09: WBC 11.2 H, RBC 4.14 L, Hgb 12.7 L, Hct 37.4 L, MCV 90.3, MCH 30.7, MCHC 34.0 D, RDW Std Deviation 44.3 H, RDW Coeff of Trish 13.3, Plt Count 252, MPV 9.7, Immature Gran % (Auto) 0.400, Neut % (Auto) 60.6, Lymph % (Auto) 25.4, [place] % (Auto) 11.4 H, Eos % (Auto) 1.8, Baso % (Auto) 0.4, Absolute Neuts (auto) 6.8, Absolute Lymphs (auto) 2.85, Nucleated RBC % 0, Sodium 140, Potassium 4.1, Chloride 112 H, Carbon Dioxide 24.0, Anion Gap 4 L, BUN 16, Creatinine 0.77, Estim Creat Clear Calc 97.47, Est GFR (MDRD) Af Amer 131, Est GFR (MDRD) Non-Af 108, BUN/Creatinine Ratio 20.7 H, Glucose 114 H, Hemoglobin A1c Pending, Calcium 8.5, Total Bilirubin 0.40, AST 115 H, ALT 33, Alkaline Phosphatase 100, Total Protein 6.6, Albumin 2.8 L, Globulin 3.8, Albumin/Globulin Ratio 0.7 L Medications at Discharge Home Medications aspirin 81 mg tablet,delayed release 81 mg PO BREAKFAST 30 days #30 tabs 03/21/23 atorvastatin 80 mg tablet 80 mg PO QHS 30 days #30 tabs 03/21/23 carvedilol 3.125 mg tablet 3.125 mg PO BID 30 days #60 tabs 03/21/23 lisinopril 10 mg tablet 10 mg PO DAILY #30 tabs 03/21/23 ticagrelor 90 mg tablet (Brilinta) 90 mg PO BID 30 days #60 tabs 03/21/23 Physical Exam Narrative Seen and examined. Patient does not have symptoms of chest pain pressure or tightness. No shortness of breath. Normal sinus rhythm on pvc monitor. Patient had short runs of 4-5 beats of NSVT. Physical exam General: Alert, Oriented x3, Cooperative HEENT: Atraumatic, PERRLA, EOMI, Normocephalic Oral: Oral mucosa moist. No Gingival or Mucosal Lesions/ Ulcerations Neck: Supple, No JVD, Negative Carotid Bruits Lungs: Air entry diminished in bilateral lung bases. No crepitation/rhonchi Cardiovascular: Regular rate, Regular Rhythm, Normal S1, Normal S2, No murmurs Abdomen: Bowel Sounds Present, Soft, Non Tender, Non-Distended : No renal angle tenderness. No suprapubic tenderness. Extremities: No edema, Capillary Refill Less than 3 Seconds Skin: No rashes, No breakdown Musculoskeletal: No Tenderness to Palpation of Joints or Extremities Neurological: Cranial nerves II-XII grossly intact, DTR 2+/4 and Symmetrical, Neuro grossly intact Psych/Mental Status: Normal Affect, Appropriate. Weight / BMI Weight Weight: 185 lb 3.013 oz Body Mass Index (BMI) 28.1 ABG / Lab / Microbiology Data 03/21/23 03:09 03/21/23 03:09 Laboratory: Laboratory Results - last 24 hr 03/20/23 08:30: Troponin I High Sens 03191 H*, Triglycerides 81, Cholesterol 165, LDL Cholesterol 114, VLDL Cholesterol 16, HDL Cholesterol 35 L 03/20/23 12:30: Troponin I High Sens [id number] H* 03/21/23 03:09: WBC 11.2 H, RBC 4.14 L, Hgb 12.7 L, Hct 37.4 L, MCV 90.3, MCH 30.7, MCHC 34.0 D, RDW Std Deviation 44.3 H, RDW Coeff of Trish 13.3, Plt Count 252, MPV 9.7, Immature Gran % (Auto) 0.400, Neut % (Auto) 60.6, Lymph % (Auto) 25.4, [place] % (Auto) 11.4 H, Eos % (Auto) 1.8, Baso % (Auto) 0.4, Absolute Neuts (auto) 6.8, Absolute Lymphs (auto) 2.85, Nucleated RBC % 0, Sodium 140, Potassium 4.1, Chloride 112 H, Carbon Dioxide 24.0, Anion Gap 4 L, BUN 16, Creatinine 0.77, Estim Creat Clear Calc 97.47, Est GFR (MDRD) Af Amer 131, Est GFR (MDRD) Non-Af 108, BUN/Creatinine Ratio 20.7 H, Glucose 114 H, Calcium 8.5, Total Bilirubin 0.40, AST 115 H, ALT 33, Alkaline Phosphatase 100, Total Protein 6.6, Albumin 2.8 L, Globulin 3.8, Albumin/Globulin Ratio 0.7 L Radiography Diagnostic Testing: Radiology Impression Echocardiogram 03/20/23 06:25 Interpretation Summary Normal LV size. Left ventricular systolic function is normal. The estimated ejection fraction is 60 %. Stage 1 diastolic dysfunction. Contrast injection was performed. Ordering Physician: Caridad Freeman Referring Physician: Arian Jonas Performed By: Thompson Dominguez RCS D/C Instructions Discharge Diet: Low fat / Low cholesterol, 1800 Calorie Control Diet and 2000 mg Sodium Diet Weight Bearing Status: Weight bearing as tolerated Call your doctor if you observe: Fever of 101 or Higher, Coldness, Increased Pain, Numbness or Tingling, Change in Color, Inability to urinate, Inability to have a bowel movement, Shortness of breath, Dizziness, Fainting spells, Swelling in the ankles, Chest pain, Prolonged hiccupping, Increased palpitations (irregular heartbeat) and Calf discomfort When: IN 2 WEEKS Meaningful Use Info Meaningful Use Diagnoses (Choose all that apply): AMI AMI/Post PCI/Angioplasty Aspirin given w/in 24hrs of arrival?: Yes ASA at discharge?: Yes Statins at discharge?: Yes Daniel/ARB at discharge?: Yes Beta Peyton at discharge?: Yes Done w/ Acute MN measure.: Yes Discharge Plan Admission Admit Date/Time: 03/20/23 04:50 Primary Reason for Your Visit: Inferior wall STEMI Attending Provider: Mil English Primary Care Provider: Ginger Basilio Consulting Providers: Arian Jonas; Caridad Freeman Discharge Orders/Prescriptions Prescriptions: New atorvastatin 80 mg Tablet 80 mg PO QHS 30 Days Qty: 30 2RF aspirin 81 mg Tablet,Delayed Release (Dr/Ec) 81 mg PO BREAKFAST 30 Days Qty: 30 3RF Brilinta 90 mg Tablet 90 mg PO BID 30 Days Qty: 60 3RF lisinopril 10 mg tablet 10 mg PO DAILY Qty: 30 2RF Rx Instructions: Hold for SBP less than 130 mmHg carvedilol 3.125 mg tablet 3.125 mg PO BID 30 Days Qty: 60 2RF Rx Instructions: must administer with a meal/food Discontinued lisinopril-hydrochlorothiazide 20-12.5 mg tablet 2 tab PO DAILY Patient Comments: TAKE 2 TABLETS BY MOUTH ONCE DAILY Referrals / Follow Up: Huy Ndiaye MD [Med Staff - Active Staff] - Within 2 Weeks (for Inferior wall STEMI) Ginger Basilio MD [Primary Care Provider] - NOT,DEFINED [Non-Staff] - Disposition Disposition (needs filled in before D/C Order can be placed): Home, Self Care Charges/Coding Visit Charges Inpatient E&M: 70515 Disch Hosp >30min
[2023-03-21 09:36] LABS: Hemoglobin A1c 5.8 % (3.8-5.6)
--- NOTE | 2023-03-21 10:00 | EKG12_ITS ---
Test Reason : POSTSTEMI Blood Pressure : / mmHG Vent. Rate : 075 BPM Atrial Rate : 075 BPM P-R Int : 200 ms QRS Dur : 094 ms QT Int : 390 ms P-R-T Axes : 070 -17 039 degrees QTc Int : 435 ms Normal sinus rhythm Normal ECG When compared with ECG of 20-MAR-2023 04:28, Questionable change in QRS axis ST no longer elevated in Inferior leads ST no longer depressed in Lateral leads Confirmed by DEJAH ODONNELL, POLO ([id number]), production editor ANIYAH JEAN ([id number]) on 03/24/2023 2:11:17 PM Referred By: Arian Jonas Confirmed By:POLO POND MD
== END 2023-03-21 08:55 | disposition home or self-care (01) | DRG 247 ==
LOC: ED 04:49 → ICU 05:19
PROVIDERS: Admitting Provider Family Medicine; Emergency Provider Emergency Medicine; PCP Family Medicine; Referring Provider Specialist; Visit Provider Internal Medicine
DX: I21.11 ST elevation (STEMI) myocardial infarction involving right coronary artery (principal); F17.210 Nicotine dependence, cigarettes, uncomplicated; I10 Essential (primary) hypertension; Z79.899 Other long term (current) drug therapy
CPT/HCPCS: 71045; 80048; 80053; 80061; 80076; 83036; 83735; 84484; 85025; 85027; 85610; 85730; 92941; 93005; 93306; 93454; 99152; 99153; 99285; C1757; J7030; J7040; Q9957; A4216; C1769; C1874; C1887; C1894; C8929; C9606; J1327; J2405; Q9967

== ENCOUNTER 2023-11-02 13:19 | Emergency (ER) | payer BC, SELFPAY ==
[2023-11-02 13:20] VITALS: BP 172/71; PULSE 66; RESP 16; TEMP 35.3; O2SAT 95; BMI 32.3
[2023-11-02 14:27] VITALS: BP 138/82; PULSE 76; RESP 15; TEMP 36.8; O2SAT 97
--- NOTE | 2023-11-02 14:40 | EDS_ITS ---
HPI History of Present Illness Chief Complaint: Complaint Informant: patient Onset/Context/Timing Onset: Yesterday Narrative Narrative: Patient presents secondary to hematuria for the past 2 days. He states yest erday his urine was light pink in color and today more bright red. He has no dysuria. He does have slight pressure over his lower abdomen. He states he has not been ill, however when sitting in the waiting room he got cold chills and some nausea. This quickly subsided. Patient does have history of prior ME. He is currently on aspirin and Plavix. PFSH PFSH Medical History Atherosclerotic heart disease of [place] coronary artery without angina pectoris HTN (hypertension) Mixed hyperlipidemia STEMI (ST elevation myocardial infarction) Tobacco use Home Medications aspirin 81 mg tablet,delayed release 81 mg PO BREAKFAST 30 days #30 tabs 03/21/23 [Rx Last Taken 11/02/23] lisinopril 20 mg tablet 20 mg PO DAILY #90 tabs 04/07/23 [Rx Last Taken 11/02/23] atorvastatin 80 mg tablet 80 mg PO QHS 30 days #90 tabs 06/18/23 [Rx Last Taken 11/01/23] carvedilol 3.125 mg tablet 3.125 mg PO BID 30 days #180 tabs 06/18/23 [Rx Last Taken 11/02/23] clopidogrel 75 mg tablet 75 mg PO DAILY 07/01/23 [History Last Taken 11/01/23] Allergy/AdvReac Type Severity Reaction Status Date / Time tramadol AdvReac Chest Verified 11/02/23 13:21 tightness Family History Mother CAD (coronary artery disease) 4 stents Father No problems noted. Sister Cancer Brother Cancer Surgical History H/O neck surgery Stented coronary artery (03/20/23) Social History household members: spouse Smoking Status: Current every day smoker tobacco type: cigarettes alcohol intake: never substance use type: does not use ROS ROS ED Constitutional Constitutional ED: Denies chills or fever(s) Eyes Eyes: Denies discharge from eye(s) ENT ENT ED: Denies discharge from eye(s), rhinorrhea or sore throat Cardiovascular Cardiovascular: Denies chest pain Respiratory/Chest Respiratory/Chest: Denies cough or dyspnea Gastrointestinal Gastrointestinal: Reports abdominal pain and nausea; Denies vomiting Genitourinary Genitourinary ED: Reports hematuria; Denies difficulty urinating or dysuria Musculoskeletal Musculoskeletal: Denies back pain or extremity pain Integumentary Denies Abrasions or rash Neurologic Neurologic: Denies headache(s) or weakness Psychiatric Psychiatric: Denies anxiety or depression Allergic/Immunologic Allergic/Immunologic ED: Denies lip swelling or urticaria EXAM Physical Exam Const Vital Signs: 11/02/23 13:20 11/02/23 14:27 11/02/23 14:27 Temperature 95.6 F L 98.2 F Temperature Source Temporal Temporal Pulse Rate 66 76 76 Respiratory Rate 16 15 15 Blood Pressure 172/71 H 138/82 H 138/82 H Blood Pressure Mean 104 100 100 Pulse Ox 95 97 97 Oxygen Delivery Method Room Air Room Air Room Air 11/02/23 15:31 11/02/23 16:00 Temperature 98 F Temperature Source Temporal Pulse Rate 87 62 Respiratory Rate 16 16 Blood Pressure 164/97 H 144/81 H Blood Pressure Mean 119 102 Pulse Ox 98 98 Oxygen Delivery Method Room Air Room Air Positive well nourished and well developed General Appearance ED: well developed HEENT Reports moist mucous membranes Eyes EOMs intact bilaterally Chest Wall inspection of chest normal and palpation of chest normal Resp normal respiratory effort and clear to auscultation bilaterally Cardio regular rate and regular rhythm GI GI Narrative: Abdomen soft with mild tenderness in the suprapubic area. No guarding or rebound. Extremity normal to inspection Neuro oriented x3 and no sensory deficits noted Motor Exam: strength 5/5 throughout Psych mental status grossly normal Skin no rashes or lesions noted MDM MDM MDM Narrative Medical decision making narrative: IV line initiated. Labwork obtained to evaluate for leukocytosis, anemia, and electrolyte derangement. Urinalysis obtained to evaluate for infection/hematu luke. CT flank obtained to evaluate for potential renal stone, mass, clots in the bladder. History & Record Review Discussion w/independent historian: Patient and Family Additional record(s) reviewed:: Prior labs Lab Data Attestation: I reviewed the patient's lab results. Labs: Laboratory Results - last 24 hr 11/02/23 11/02/23 14:37 15:30 WBC 9.9 RBC 4.97 Hgb 13.0 Hct 42.1 MCV 84.7 MCH 26.2 L MCHC 30.9 L RDW Std Deviation 51.8 H RDW Coeff of Trish 16.6 H Plt Count 317 MPV 10.1 Immature Gran % (Auto) 0.300 Neut % (Auto) 58.3 Lymph % (Auto) 28.5 [place] % (Auto) 10.2 H Eos % (Auto) 2.1 Baso % (Auto) 0.6 Absolute Neuts (auto) 5.8 Absolute Lymphs (auto) 2.82 Nucleated RBC % 0 Sodium 140 Potassium 4.3 Chloride 108 H Carbon Dioxide 28.0 Anion Gap 4 L BUN 12 Creatinine 1.04 Estim Creat Clear Calc 83.00 Est GFR (MDRD) Af Amer 93 Est GFR (MDRD) Non-Af 77 BUN/Creatinine Ratio 11.5 Glucose 110 H Calcium 8.9 Urine Color Red Urine Clarity Cloudy Urine pH 6.5 Ur Specific Reynolds 1.015 Urine Protein 500 H Urine Glucose (UA) Normal Urine Ketones 5 H Urine Occult Blood 250 H Urine Nitrite Negative Urine Bilirubin Negative Urine Urobilinogen Normal Ur Leukocyte Esterase Negative Urine RBC > 100 SEEN Urine WBC 5-10 SEEN Ur Squamous Epith Cells 0 SEEN Urine Bacteria RARE Urine Mucus 0 SEEN Radiography Diagnostic Testing: Clinical Impression(s) from Imaging Studies Abdomen/Pelvis CT 11/02/23 14:48 IMPRESSION: High attenuation layering focus within the left renal pelvis may reflect blood and/or proteinaceous material, cannot exclude a neoplastic process. Colonic diverticulosis. Atherosclerosis. Electronically Signed: Sharron Sanchez MD at 15:06 EDT , Additional Tests and Interventions Additional Tests or Interventions: CBC was normal white count 9.9 with normal hemoglobin of 13.0. Chemistry studies unremarkable with normal renal function. Urinalysis reveals greater than 100 red cells with rare bacteria and 5-10 white cells. No nitrites noted. CT scan of the flank reveals high attenuation layering focus in the left renal pelvis which may reflect blood and/or proteinaceous material, cannot exclude ne oplastic process. I spoke with Dr. Dowell. He will see the patient as an outpatient for close follow-up. He would prefer to have us hold patient's aspirin and Plavix if at all possible. I spoke with Dr. Hopkins, on-call for cardiology. He reviewed the patient's cath images and did come to the emergency room to speak with the patient himself. Plan will be to have him continue baby aspirin but he can hold his Plavix. Patient is to call Dr. Dowell's office in the morning. Discharge Plan Triage Chief Complaint: Complaint ED Provider: Angie Loya Dx/Rx/DC Orders Clinical Impression: Hematuria Instructions: ED Hematuria Prescriptions: No Action lisinopril 20 mg tablet 20 mg PO DAILY Qty: 90 3RF clopidogrel 75 mg tablet 75 mg PO DAILY aspirin 81 mg Tablet,Delayed Release (Dr/Ec) 81 mg PO BREAKFAST 30 Days Qty: 30 3RF atorvastatin 80 mg tablet 80 mg PO QHS 30 Days Qty: 90 3RF carvedilol 3.125 mg tablet 3.125 mg PO BID 30 Days Qty: 180 3RF Rx Instructions: must administer with a meal/food Stand Alone Forms: ED Work / School Excuse Primary Care Provider: Ginger Basilio Referrals: Ginger Basilio MD [Primary Care Provider] - Kevin Dowell MD [Med Staff - Active Staff] - As soon as possible Activity Restrictions/Additional Instructions: As discussed with Dr. Hopkins, please continue your baby aspirin but you can hold your Plavix. Please call Dr. Dowell's office tomorrow morning. Let them know that you were seen in the emergency room with blood in your urine and need close follow-up. Disposition Disposition: Home, Self Care
[2023-11-02 14:44] LABS: Absolute Lymphocyte Count 2.82 X10^3/uL (0.83-4.51); Absolute Neutrophil Count 5.8 X10^3/uL (2.0-7.7); Basophil# 0.06 X10^3/uL; Basophil% 0.6 % (0-1); Eosinophil# 0.21 X10^3/uL; Eosinophils% 2.1 % (0-5); Hematocrit 42.1 % (40-54); Lymphocyte # 2.82 X10^3/ul (0.83-4.51); Lymphocyte % 28.5 % (19-41); Mean Corp Hgb Conc 30.9 g/dL (32-36); Mean Corpuscular Hgb 26.2 pg (27.0-32.0); Mean Corpuscular Volume 84.7 fL (80-94); Mean Platelet Vol. 10.1 fl (6.2-12.0); Monocyte# 1.01 X10^3/uL; Monocyte% 10.2 % (0-10); NRBC Flagged by Analyzer 0 % (0-5); Neutrophil # 5.75 X10^3/uL (2.7-7.7); Neutrophil % 58.3 % (47-70); Platelet Count 317 K/mm3 (150-450); RBC Distribution Width CV 16.6 % (11.6-14.6); RBC Distribution Width SD 51.8 fl (35.1-43.9); Red Blood Count 4.97 M/mm3 (4.6-6.2); White Blood Count 9.9 K/mm3 (4.4-11.0)
--- NOTE | 2023-11-02 14:48 | CT_ITS ---
INDICATION: hematuria EXAMINATION: CT ABDOMEN AND PELVIS WITHOUT CONTRAST - CT Abdomen And Pelvis W/O Contrast Injection TECHNIQUE: Helically acquired images were obtained of the abdomen and pelvis without oral or IV contrast. A radiation dose optimization technique was used for this scan. IV Contrast dosage and agent: None. Oral contrast: None. RADIATION DOSAGE (If Supplied By Facility): CTDIvol = ( 8.41 ) mGy, DLP = ( 443.12 ) mGycm COMPARISON: No relevant prior comparison study available FINDINGS: LOWER CHEST: Lung bases are clear. No cardiomegaly or pericardial effusion. The lack of intravenous contrast limits evaluation of solid visceral organs. LIVER: Homogeneous. There is a too small to characterize low-attenuation focus within the left hepatic lobe which may reflect a cyst or hemangioma. GALLBLADDER AND BILIARY TREE: No calcified gallstones. No gallbladder distension or wall edema. No intra- or extrahepatic biliary ductal dilation. PANCREAS: No focal cystic or solid mass. SPLEEN: Normal size without focal cystic or solid mass. ADRENAL GLANDS: No nodules. KIDNEYS AND URETERS: Normal renal size and position. Within the left renal pelvis there is a dependent high attenuation layering focus (image 65 series 2). There is mild left-sided pelviectasis. PERITONEUM: No ascites or free air. No other fluid collection. BOWEL: No evidence of acute appendicitis. No stomach or bowel distension. There are diverticula arising from the colon. There is intramural fat throughout the colon suggestive of prior inflammation. LYMPH NODES: No enlarged mesenteric or retroperitoneal lymph nodes. VESSELS: Aorta is non-dilated. There are peripheral calcifications of the abdominal aorta. URINARY BLADDER: Unremarkable. REPRODUCTIVE ORGANS: No pelvic masses. ABDOMINAL WALL: No discrete abdominal or pelvic wall hernia. BONES: There are multilevel degenerative changes of the thoracic and lumbar spine. CT/Abdomen/Pelvis without Cont IMPRESSION: High attenuation layering focus within the left renal pelvis may reflect blood and/or proteinaceous material, cannot exclude a neoplastic process. Colonic diverticulosis. Atherosclerosis. Electronically Signed: Sharron Sanchez MD at 15:06 EDT ,
[2023-11-02 15:01] LABS: Anion Gap 4 (5-15); BUN 12 mg/dL (7-18); BUN/Creat Ratio 11.5 RATIO (10-20); Calcium,Total 8.9 mg/dL (8.5-10.1); Chloride 108 mmol/L (98-107); Creatinine, Serum 1.04 mg/dL (0.70-1.30); EST Glomerular Filtration Rate 77 mL/min (>60); Est Glom Filt Rate - Afr Amer 93 mL/min (>60); Glucose 110 mg/dL (74-106); Potassium 4.3 mmol/L (3.5-5.1); Sodium Level 140 mmol/L (136-145)
[2023-11-02 15:31] VITALS: BP 164/97; PULSE 87; RESP 16; TEMP 36.6; O2SAT 98
[2023-11-02 15:42] LABS: Mucous, Urine 0 SEEN /hpf (<or=2+); Squamous Epithelial Cells - UA 0 SEEN /hpf (0-5)
[2023-11-02 15:44] LABS: Color, Urine Red (Yellow); Glucose, Dipstick Normal (Normal); Ketone-Dipstick 5 mg/dl (Negative); Leukocyte Esterase-Dipstick Negative /ul (Negative); Nitrite-Dipstick Negative (Negative); Occult Blood-Urine 250 /ul (Negative); Protein-Dipstick 500 mg/dl (Negative); Specific Gravity, Urine 1.015 (1.002-1.030); Urine Bilirubin Dipstick Negative (Negative); Urine Clarity Cloudy (Clear); Urine Urobilinogen Normal (Normal); Urine pH 6.5 (5.0 - 8.0)
[2023-11-02 15:58] LABS: Bacteria RARE /hpf (None Seen); Red Blood Cells-Urine > 100 SEEN /hpf (0-5); White Blood Cells 5-10 SEEN /hpf (0-5)
[2023-11-02 16:00] VITALS: BP 144/81; PULSE 62; RESP 16; O2SAT 98
[2023-11-02 17:36] VITALS: BP 124/69; PULSE 72; RESP 16; TEMP 36.6; O2SAT 98
== END 2023-11-02 17:37 | disposition home or self-care (01) ==
PROVIDERS: Emergency Provider Emergency Medicine; PCP Family Medicine; Visit Provider Emergency Medicine
DX: R31.9 Hematuria, unspecified (principal); I10 Essential (primary) hypertension; I25.10 Atherosclerotic heart disease of native coronary artery without angina pectoris; E78.2 Mixed hyperlipidemia; I25.2 Old myocardial infarction; F17.210 Nicotine dependence, cigarettes, uncomplicated; Z79.899 Other long term (current) drug therapy; Z79.82 Long term (current) use of aspirin; Z95.5 Presence of coronary angioplasty implant and graft
CPT/HCPCS: 74176; 80048; 81001; 85025; 99283; A4216

== ENCOUNTER → 2023-11-09 | Outpatient (CLI) | payer BC, SELFPAY ==
--- NOTE | 2023-11-09 | CYSPIN_PTH ---
PATIENT: REESE WHITLEY LOC: [facility] U#:[id number] AGE/SX: 63/M ROOM: RE11/09/[address]: Lia Elizabeth : 1960 BED: DIS: 11/09/2023 SPEC #: [id number] RECD: 11/10/23 08:23 STATUS: LAMAR REGerber #: [id number] MARINO: 11/09/23 00:[address]: Lia Elizabeth DEPT: CYTOLOGY RECD BY: Ted Walter ENTERED: 11/10/23 08:24 SP TYPE: CYSPIN FL OTHR DR: Dr. Ginger Basilio MD Tissues: Urine Procedures: Pap Stain (control) Special Stain Group II Cytospin Fluid HEADER OPERATION: Not noted PRE-OP DIAGNOSIS: PSA TISSUE SUBMITTED: Urine for cytology DIAGNOSIS CYTOLOGY Urine for cytology (cytospin): Atypical urothelial cells present (AUC) See comment. AM/mr 11/10/2023 COMMENT The [facility] System for urine cytology diagnostic categorization was used in the evaluation of this case. CYTOLOGY STUDY Slides are reviewed. CYTOLOGY GROSS Received is 70 ml of dark gold-cloudy fluid labeled with the patient's name and and designated per the requisition as urine. Submitted for cytology preparation. mr 11/09/23 TC:? CPT: 87786
[2023-11-09 14:50] LABS: PSA,Total - Annual Screen 2.55 ng/mL (0.00-4.00)
[2023-11-09 16:12] LABS: Cytology, Body Fluid / CSF SEE PATHOLOGY REPORT
== END | disposition home or self-care (01) ==
PROVIDERS: PCP Family Medicine; Referring Provider Nurse Practitioner; Visit Provider Nurse Practitioner
DX: Z12.5 Encounter for screening for malignant neoplasm of prostate (principal); R31.0 Gross hematuria
CPT/HCPCS: 36415; 84153; 88108; 88313; G0103